=== PATIENT | female | born 1985 | race Hispanic/Latino ===

== ENCOUNTER 2022-11-25 10:18 | Emergency (ER) | payer MEDICARE ==
[~2022-11-25] VITALS: Ht 160 cm; Wt 63.5 kg
[2022-11-25 11:11] LABS: INR 0.93 (0.85-1.15); PROTHROMBIN TIME 9.8 SEC (9.6-11.6)
[2022-11-25 11:16] LABS: APPEARANCE,URINE TURBID (CLEAR); BILIRUBIN,URINE NEGATIVE (NEGATIVE); COLOR,URINE LIGHT-ORANGE (YELLOW); GLUCOSE, URINE (UA) NEGATIVE (NEGATIVE); KETONES,URINE NEGATIVE (NEGATIVE); LEUKOCYTE ESTERASE ,URINE NEGATIVE Leu/uL (NEGATIVE); NITRATE,URINE NEGATIVE (NEGATIVE); OCCULT BLOOD,URINE NEGATIVE (NEGATIVE); PROTEIN,URINE NEGATIVE (NEGATIVE); UROBILINOGEN,URINE 0.2 mg/dL (0.2-1.0)
[2022-11-25 11:21] LABS: HCG,QUALITATIVE URINE NEGATIVE (NEGATIVE)
[2022-11-25 11:26] LABS: BASOPHILS % (AUTO) 0.5 % (0.0-5.0); EOSINOPHILS % (AUTO) 1.2 % (0.0-8.0); HEMATOCRIT 37.8 % (36-48); LYMPHOCYTES % (AUTO) 10.7 % (21.0-51.0); MEAN CORPUSCULAR HEMOGLOBIN 30.4 pg (27.0-33.0); MEAN CORPUSCULAR HGB CONC 33.1 g/dL (32.0-36.0); MONOCYTES % (AUTO) 6.8 % (3.0-13.0); NEUTROPHILS % (AUTO) 80.4 % (40.0-77.0); PLATELET COUNT (AUTO) 283 K/uL (130-400); RED BLOOD CELL COUNT(AUTO) 4.11 MIL/uL (4.00-5.50); RED CELL DISTRIBUTION WIDTH 14.1 % (11.0-15.5)
[2022-11-25 11:48] LABS: ALBUMIN 3.6 g/dL (3.5-5.0); CREATININE 0.8 mg/dL (0.5-1.5); POTASSIUM 3.9 mmol/L (3.5-5.1); TOTAL PROTEIN, SERUM 7.5 g/dL (6.0-8.3)
[2022-11-25 11:51] LABS: BACTERIA,URINE RARE /HPF (None Seen); CALCIUM OXALATE CRYSTALS,UR FEW /LPF (None Seen); MUCUS,URINE RARE LPF (None Seen); SQUAMOUS EPITHELIAL CELL,UR FEW /HPF (0-2)
[2022-11-25] MEDS ORDERED: ACETAMINOPHEN 500 MG TABLET PO ONE (12:00)
[2022-11-25 12:14] LABS: B-TYPE NATRIURETIC PEPTIDE 17 pg/mL (0-100)
[2022-11-25 12:25] LABS: PARTIAL THROMBOPLASTIN TIME 28.8 SEC (26.3-35.5)
[2022-11-25] MEDS ORDERED: IOHEXOL-350 75 ML VIAL IV ONE (13:21)
[2022-11-25 14:29] VITALS: BP 105/70
== END 2022-11-25 15:25 | disposition home or self-care (01) ==
LOC: EDH 10:18
DX: R07.89 Other chest pain (principal); G40.909 Epilepsy, unspecified, not intractable, without status epilepticus
CPT/HCPCS: 99285; 71270; 71045; 80061; 83735; 84484; 80053; 83880; 85025; 85378; 85610; 85730; 81001; 81025; 36415; 93005; Q9967

== ENCOUNTER → 2024-10-05 | Outpatient (CLI) | payer OTHER, MEDICARE ==
--- NOTE | 2024-10-05 14:29 | HMCIMG ---
HIDA scan INDICATION: RUQ PAIN. TECHNIQUE: Patient was administered 7 mCi of technetium 99m Choletec IV and dynamic images of the abdomen were obtained over 2 hours. Patient was then given 1.5 mcg of CCK IV for gallbladder ejection fraction calculation. FINDINGS: There is rapid and homogeneous uptake of radiopharmaceutical by the liver, which shows normal size and shape. Activity in the gallbladder noted 5 to minutes after injection of tracer. Normal hepatic clearance with activity in the small bowel. Gallbladder ejection fraction calculated at 80% (normal is > 35%). IMPRESSION: Normal ejection fraction. No evidence of gallbladder dyskinesia. No evidence of acute or chronic cholecystitis..
== END | disposition home or self-care (01) ==
LOC: RAH 07:32
PROVIDERS: ATTEND Internal Medicine Gastroenterology
DX: K80.20 Calculus of gallbladder without cholecystitis without obstruction (principal); R10.11 Right upper quadrant pain
CPT/HCPCS: 78227; A9537

== ENCOUNTER 2025-05-23 06:32 | Day surgery (SDC) | payer OTHER, MEDICAID ==
[2025-05-22 12:48] LABS: IMMATURE GRANULOCYTE ABSOLUTE 0.03 K/uL (0-1); NUCLEATED RED BLOOD CELLS 0.0 % (0.0-0.19); PLATELET COUNT (AUTO) 367 K/uL (130-400); RED BLOOD CELL COUNT(AUTO) 4.08 MIL/uL (4.00-5.50); RED CELL DISTRIBUTION WIDTH 13.2 % (11.0-15.5); WHITE BLOOD COUNT (AUTO) 7.3 K/uL (4.8-10.8)
[2025-05-22 12:59] LABS: ASPARTATE AMINOTRANSFERASE 14.0 U/L (10-37); CREATININE 0.7 mg/dL (0.5-1.0); GLOMERULAR FILTR. RATE CALC 113.0 mL/min (>90); GLUCOSE,RANDOM 86.0 mg/dL (70-105); SODIUM SERUM 139.0 mmol/L (136-145); TOTAL PROTEIN, SERUM 7.3 g/dL (6.0-8.3); UREA NITROGEN, BLOOD 13.0 mg/dL (7-18)
[2025-05-22 13:14] VITALS: BP 105/65; PULSE 86; RESP 18; TEMP 97.5
[2025-05-22 13:20] LABS: INR 0.94 (0.85-1.15)
--- NOTE | 2025-05-22 15:23 | NUR ---
REPORT DR CURRIE REVIEWED EKG. OK TO PROCEED
--- NOTE | 2025-05-22 15:32 | NUR ---
REPORT DR CURRIE INFORMED OF LAST SEIZURE. RECEIVED INSTRUCTIONS FOR PT TO CONTINUE TAKING SEIZURE MEDS. PT ALREADY AWARE
--- NOTE | 2025-05-22 19:03 | EKG ---
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
[~2025-05-23] VITALS: Ht 160 cm; Wt 72.9 kg
[2025-05-23] VITALS (16 sets, daily range): BP systolic 103–117; BP diastolic 55–82; PULSE 69–97; RESP 15–18; TEMP 97–97.8
[~2025-05-23 06:32] MED LIST: CLOBAZAM PO; FAMO40TA7 PO; LACO100T2 PO; LACTATED RINGERS 1000ML 1,000 ML IV ONE; LEVO25CA5 PO; OMEP40CA21 PO; VITAMIN D3 PO; XCOPRI PO
[2025-05-23] MEDS ORDERED: LIDOCAINE HCL MPF 1% 5ML VIAL ONE (07:26)
[2025-05-23] MEDS ORDERED: MIDAZOLAM HCL 1 MG/ML 2ML VIAL ONE (07:27)
[2025-05-23] MEDS ORDERED: PROMETHAZINE HCL 25 MG/ML 1ML AMPULE IM PRN (07:30)
[2025-05-23] MEDS ORDERED: LIDOCAINE HCL 2% PF 20 ML JEL DISP.SYRIN MM ONE (07:38)
[2025-05-23] MEDS ORDERED: LIDOCAINE 1%-EPI 1:100,000 20 ML VIAL ONE (07:38)
[2025-05-23] MEDS: LIDOCAINE HCL 1% 10 ML VIAL INJ ONE (08:30)
[2025-05-23] MEDS ORDERED: NEOSTIGMINE METHYLSULFATE 1MG/ML IV ONE (08:40)
[2025-05-23] MEDS ORDERED: GLYCOPYRROLATE 0.2 MG/ML 5 ML VIAL ONE (08:40)
--- NOTE | 2025-05-23 09:42 | OP ---
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 She was managed medically without improvement. She was offered operative management. Complications, risks alternatives and benefits were discussed with the patient and family in detail. Risks include infection, bleeding, injury to surrounding structures, need for further surgery and recurrence of disease. All questions were answered to their satisfaction and they all wished to proceed with the operation.] DESCRIPTION OF PROCEDURE: [The patient is brought to the operating theater placed supine on the operating table. After appropriate general endotracheal anesthesia was administered and IV antibiotics given the patient is placed in the dorsal lithotomy position. Perineum was prepped and draped in appropriate sterile surgical fashion. Local anesthetic was injected as a perianal block. The patient is noted to have anal condyloma externally and there was a few spots internally. The majority of the condyloma was external. Approximately 5% of the anoderm was involved. The electrocautery was to remove the condyloma. An anoscope was inserted and there was a few spots suspicious for condyloma was which were cauterized. Excellent hemostasis was achieved. There were no complications. The instrument, sponge and needle count reported as correct x2 by nursing staff. Specimen was passed off the table. There were no complications. The patient tolerated the procedure very well. There was no family present to discuss this postop.] BRUNO MORALES MD May 23, 2025 09:42
== END 2025-05-23 10:39 | disposition home or self-care (01) ==
LOC: DAH 06:32
PROVIDERS: ATTEND Surgery
DX: A63.0 Anogenital (venereal) warts (principal); K29.50 Unspecified chronic gastritis without bleeding; K59.04 Chronic idiopathic constipation; E66.3 Overweight; Z68.26 Body mass index [BMI] 26.0-26.9, adult; Z79.899 Other long term (current) drug therapy; Z98.890 Other specified postprocedural states
CPT/HCPCS: 80053; 84703; 85025; 85610; 85730; 36415; 93005; 46922; 88305; J1100; A4223 ×2; A6260; A4663; A4606; J7120; J3010; J3490 ×5; J2250; J2704; J2405; J2710; J0665 ×2; J0690 ×2; A4649; A4930 ×2; A4215; A4213; A4222; A4221; A4216